=== PATIENT | male | born 1990 | race Caucasian/White ===

== ENCOUNTER 2017-06-06 16:54 | Emergency (ER) | payer SELFPAY ==
[~2017-06-06] VITALS: Ht 190.5 cm; Wt 108.4 kg
[2017-06-06 19:04] VITALS: BP 120/70
== END 2017-06-06 19:00 | disposition home or self-care (01) ==
LOC: FSED 16:54
DX: G40.409 Other generalized epilepsy and epileptic syndromes, not intractable, without status epilepticus (principal)
CPT/HCPCS: 70450; 80053; 80307; 81003; 82553; 84484; 85025; 99283